=== PATIENT | male | born 1970 | race Caucasian/White ===

== ENCOUNTER 2017-03-17 18:56 | Emergency (ER) | payer MEDICAID, OTHER ==
[~2017-03-17] VITALS: Ht 170.2 cm; Wt 82.0 kg
[2017-03-17] MEDS ORDERED: MORPHINE SULFATE 4 MG/ML CPJ (NOT FOR IM USE) IV ONE (22:30)
[2017-03-17] MEDS ORDERED: KETOROLAC 30MG/ML VIAL IM ONE (22:30)
[2017-03-17] MEDS ORDERED: ONDANSETRON HCL 4MG/2ML VIAL IV ONE (23:00)
[2017-03-18] MEDS ORDERED: KETOROLAC 30MG/ML VIAL IV ONE (01:00)
[2017-03-18] MEDS ORDERED: MORPHINE SULFATE 4 MG/ML CPJ (NOT FOR IM USE) IV STA (03:35)
[2017-03-18] MEDS ORDERED: ONDANSETRON HCL 4MG/2ML VIAL IV STA (03:35)
[2017-03-18 04:15] VITALS: BP 132/77
== END 2017-03-18 04:15 | disposition home or self-care (01) ==
LOC: ER 19:23
DX: R51 Headache (principal); R07.89 Other chest pain; R10.9 Unspecified abdominal pain; M54.2 Cervicalgia; F12.10 Cannabis abuse, uncomplicated; V49.9XXA Car occupant (driver) (passenger) injured in unspecified traffic accident, initial encounter; Y93.89 Activity, other specified; Y92.89 Other specified places as the place of occurrence of the external cause; Y99.8 Other external cause status
CPT/HCPCS: 70450; 71250; 72125; 74176; 96374; 96375; 96376; 99284; J1885; J2270; J2405; Z7610